=== PATIENT | male | born 1950 | race Caucasian/White ===

== ENCOUNTER 2020-07-07 17:45 | Emergency (ER) | payer MEDICARE, SELFPAY ==
--- NOTE | 2020-07-07 17:48 | ED.WOUNDLAC ---
HPI - Wound/Laceration General Chief Complaint: Wound/Laceration Stated Complaint: head laceration Time Seen by Provider: 07/07/20 17:48 Source: patient Mode of arrival: ambulatory Limitations: no limitations History of Present Illness HPI narrative: Patient is a 69-year-old male who presents with a laceration to left eyebrow. Patient was chasing grandson on tricycle when he tripped and fell hitting head on concrete. He denies LOC, denies neck pain, denies headache. Denies use of blood thinners. Patient has approximately 2.5 cm laceration above left eyebrow. Abrasion to chin and left knee. Denies pain at knee. Bleeding controlled at this time. Related Data Home Medications Medication Instructions Recorded Confirmed melatonin 10 mg capsule 10 mg PO DAILY cap 03/25/19 04/30/20 vilazodone 20 mg tablet 20 mg PO DAILY 03/25/19 04/30/20 Allergies Allergy/AdvReac Type Severity Reaction Status Date / Time No Known Allergies Allergy Verified 04/30/20 15:35 Review of Systems Review of Systems: Narrative: CONSTITUTIONAL: Denies fever, chills, or sweats. EYES: Denies visual changes, redness, or discharge. ENT: Denies rhinorrhea, congestion, sore throat, or otalgia. CARDIOVASCULAR: Denies chest pain, palpitations, or edema. RESPIRATORY: Denies cough or dyspnea. GASTROINTESTINAL: Denies abdominal pain, nausea, vomiting, or diarrhea. GENITOURINARY: Denies dysuria or hematuria. SKIN: Laceration left eyebrow, abrasion to chin and left knee MUSCULOSKELETAL: Denies back pain, joint pain, or myalgia. NEUROLOGIC: Denies headache, numbness, dizziness, or weakness. PSYCHIATRIC: Denies anxiety or depression. [facility] Past Medical History Medical History Basal cell carcinoma (BCC) of dorsum of nose Erectile dysfunction Low back pain Obesity (BMI 30.0-34.9) Onychomycosis Surgical History Surgical History History of colonoscopy (~01/20/11) normal, repeat 10 years History of colonoscopy (~03/22/12) internal hemorrhoids Family History Family History Mother Cerebrovascular accident Father , age 90 Cerebrovascular accident Skin cancer Heart disease Congestive heart failure Social History Social History Smoking status: Never smoker Smoking end date: 04/24/83 Alcohol intake: current Comments At the time of signature, I have reviewed and agree with nursing past medical, surgical, social, and family history unless otherwise noted. Please see nursing chart for further information. There is no relevant family history pertinent to the presenting complaint. Exam Narrative: Exam Narrative: GENERAL: Well-appearing, well-nourished, and in no acute distress. HEAD: Normocephalic, atraumatic. EYES: EOMI. No redness or drainage. Conjunctiva are normal. ENT: Mucous membranes pink and moist. NECK: AROM. Supple. No lymphadenopathy or deformity. CHEST: No respiratory distress. HEART: Regular rate and rhythm. No murmur appreciated. Normal peripheral pulses. GI: Soft, nontender without rebound, or guarding. MUSCULOSKELETAL: No bony tenderness. EXTREMITIES: Normal range of motion. No edema or deformity. SKIN: Approximate 2.5 cm laceration above left eyebrow, linear, bleeding controlled, abrasion to chin and left knee NEURO: No focal deficits. Alert and oriented x3. Gait steady. PSYCH: Normal affect. No signs of depression or anxiety. Course Vital Signs Vital signs: Vital Signs Temperature 36.6 C 07/07/20 17:52 Pulse Rate 92 07/07/20 17:52 Respiratory Rate 20 07/07/20 17:52 Blood Pressure 139/81 07/07/20 17:52 Pulse Oximetry 98 07/07/20 17:52 Temperature 36.6 C 07/07/20 17:52 Pulse Rate 92 07/07/20 17:52 Respiratory Rate 20 07/07/20 17:52 Blood Pressure
[2020-07-07 17:52] VITALS: BP 139/81; PULSE 92; RESP 20; TEMP 36.6; O2SAT 98
== END 2020-07-07 18:37 | disposition short-term general hospital (02) ==
PROVIDERS: Emergency Provider Nurse Practitioner; PCP Family Medicine
DX: S01.112A Laceration without foreign body of left eyelid and periocular area, initial encounter (principal); W01.0XXA Fall on same level from slipping, tripping and stumbling without subsequent striking against object, initial encounter; Z85.828 Personal history of other malignant neoplasm of skin
CPT/HCPCS: 12011; 99212; G0463

== ENCOUNTER 2020-07-07 18:51 | Emergency (ER) | payer MEDICARE, SELFPAY ==
--- NOTE | ~2020-07-07 | CT_ITS ---
EXAMINATION: CT brain wo con DATE: 07/07/2020 19:52 INDICATION: Fall. Head trauma. TECHNIQUE: Computed tomography (CT) of the head was performed without intravenous contrast. The mA wa s adjusted according to patient size. Iterative reconstruction technique was employed. Exam dose: 68 1.00 mGy-cm total exam DLP. COMPARISON: 07/12/2017 CT brain FINDINGS: No intracranial mass lesion or hemorrhage or cerebrovascular accident is evident. There is no midline shift or mass effect effect. Bilateral carotid siphon internal carotid artery calcifications. Normal ventricular size. No subdural or epidural hematoma. No fracture or bone destruction of the cranial vault. Included paranasal sinuses and mastoid air cells are normally developed and aerated. No fracture or bone destruction of the cranial vault. IMPRESSION: No acute intracranial finding or skull fracture Reviewed, dictated and finalized at [facility]. Reviewed, dictated and finalized at [facility].
[2020-07-07 19:18] VITALS: BP 158/87; PULSE 92; RESP 18; TEMP 36.7; O2SAT 97
--- NOTE | 2020-07-07 20:41 | ED.HEATRA ---
HPI - Head Injury General Chief complaint: Head Injury Stated complaint: head trauma no loc Time Seen by Provider: 07/07/20 20:34 Source: patient Mode of arrival: ambulatory Limitations: no limitations History of Present Illness HPI Narrative: 69-year-old with no major medical problems here with complaints of laceration to his left eyebrow sustained few hours ago. Patient states that he was watching his grandson riding his bike, accidentally lost balance and fell forward. Denies any loss of consciousness. Denies any neck injuries. Patient states that he went to urgent care and was later referred here to the ER for CT scan. He denies any other injuries. Complaint: head injury Place: outdoors Loss of Consciousness: no Location of injury: frontal Severity: mild Other Injuries: none Related Data Home Medications Medication Instructions Recorded Confirmed melatonin 10 mg capsule 10 mg PO DAILY cap 03/25/19 04/30/20 vilazodone 20 mg tablet 20 mg PO DAILY 03/25/19 04/30/20 Allergies Allergy/AdvReac Type Severity Reaction Status Date / Time No Known Allergies Allergy Verified 04/30/20 15:35 Review of Systems Review of Systems: All systems reviewed & are unremarkable except as noted in HPI and below Constitutional: Constitutional: Reports no additional constitutional complaints Eyes: Eyes: Reports no additional eye complaints ENT: Reports system reviewed and no additional complaints, except as documented Cardiovascular: Cardiovascular: Reports no additional cardiovascular complaints Respiratory: Respiratory: Reports no additional respiratory complaints Gastrointestinal: Gastrointestinal: Reports no additional gastrointestinal complaints Musculoskeletal: Musculoskeletal: Reports no additional musculoskeletal complaints Neurologic: Reports system reviewed and no additional complaints, except as documented [facility] Past Medical History Medical History Basal cell carcinoma (BCC) of dorsum of nose Erectile dysfunction Low back pain Obesity (BMI 30.0-34.9) Onychomycosis Surgical History Surgical History History of colonoscopy (~01/20/11) normal, repeat 10 years History of colonoscopy (~03/22/12) internal hemorrhoids Family History Family History Mother Cerebrovascular accident Father , age 90 Cerebrovascular accident Skin cancer Heart disease Congestive heart failure Social History Social History Smoking status: Never smoker Smoking end date: 04/24/83 Alcohol intake: current Exam Narrative: Exam Narrative: GENERAL: Well-appearing, well-nourished, and in no acute distress. HEAD: Normocephalic, has minor superficial lac on the left eye brow EYES: PERRLA and EOMI. NECK: Supple. CHEST: Clear to auscultation. No respiratory distress. HEART: Regular rate and rhythm. No murmur heard. Normal peripheral pulses.. EXTREMITIES: Normal range of motion. No edema. SKIN: Warm, dry, no rash. NEURO: No focal deficits. Alert and oriented x3. PSYCH: Normal mood and affect. Course Course Emergency Course: Discussed CT findings with the patient. At this time he has no headache or visual problems. Advised him to keep the wound dry and clean. Apply Neosporin if needed advised him to Tylenol as needed for the pain and also follow-up with Dr. Guadarrama Vital Signs Vital signs: Vital Signs Temperature 36.7 C 07/07/20 19:18 Pulse Rate 92 07/07/20 19:18 Respiratory Rate 18 07/07/20 19:18 Blood Pressure 158/87 H 07/07/20 19:18 Pulse Oximetry 97 07/07/20 19:18 Temperature 36.7 C 07/07/20 19:18 Pulse Rate 92 07/07/20 19:18 Respiratory Rate 18 07/07/20 19:18 Blood Pressure 158/87 H 07/07/20 19:18 Pulse Oximetry 97 07/07/20 19:18 MDM - Head
[2020-07-07 20:50] VITALS: BP 140/79; PULSE 87; RESP 18; O2SAT 98
== END 2020-07-07 20:50 | disposition home or self-care (01) ==
PROVIDERS: Emergency Provider Family Medicine; PCP Family Medicine
DX: S09.90XA Unspecified injury of head, initial encounter (principal); S01.112A Laceration without foreign body of left eyelid and periocular area, initial encounter; Z85.828 Personal history of other malignant neoplasm of skin; E66.9 Obesity, unspecified; Z68.29 Body mass index [BMI] 29.0-29.9, adult; W18.39XA Other fall on same level, initial encounter
CPT/HCPCS: 70450; 99284

== ENCOUNTER 2021-05-30 09:05 | Emergency (ER) | payer MEDICARE, SELFPAY ==
--- NOTE | ~2021-05-30 | XR_ITS ---
EXAMINATION: XR chest 2V 05/30/2021 10:00 INDICATION: Chest pain and dizziness PROCEDURE: 2 views of the chest COMPARISON: 11/06/2015 FINDINGS: The lungs are clear. The cardiomediastinal silhouette is within normal limits. There are no pleural effusions. There is no pneumothorax suspected. IMPRESSION: 1: NO ACUTE CARDIOPULMONARY DISEASE. Reviewed, dictated and finalized at [facility]. MEDICAL TECHNOLOGIST
[2021-05-30 09:08] VITALS: BP 151/75; PULSE 79; RESP 22; TEMP 36.4; O2SAT 96
--- NOTE | 2021-05-30 09:21 | ECG_ITS ---
Measurements Intervals [place] Rate: 78 P: 27 AK: 179 QRS: -28 QRSD: 113 T: 38 QT: 393 QTc: 450 Interpretive Statements SINUS RHYTHM CONSIDER INFERIOR INFARCT, AGE INDETERMINATE BASELINE ARTIFACT- I, II, III, AVR, AVL, AVF, V1-V6 ABNORMAL ECG Electronically Signed On 05-30-2021 14:19:35 [employer] by Vasyl Alcaraz D.O.
[2021-05-30 09:30] LABS: Basophils Percent Auto 0.4 % (0.2-1.2); Eosinophils Absolute Auto 0.2 K/mm3 (0-0.3); Eosinophils Percent Auto 3.9 % (0-4.4); Hematocrit 42.5 % (42.0-52.0); Hemoglobin 15.3 g/dL (14.0-18.0); Immature Granulocyte Absolute 0.01 K/mm3 (0.00-0.031); Immature Granulocyte Percent A 0.2 % (0-0.5); Immature Platelet Fraction Pct 3.7 % (0.9-11.2); Lymphocytes Absolute Auto 1.58 K/mm3 (0.9-3.2); Lymphocytes Percent Auto 30.6 % (18.3-44.2); Mean Corpuscular Hemoglobin 32.6 pg (26-34); Mean Corpuscular Volume 90.6 fl (80-100); Mean Platelet Volume 9.9 fl (7.4-10.4); Monocytes Absolute Auto 0.4 K/mm3 (0.1-0.6); Monocytes Percent Auto 8.1 % (2.6-8.5); Neutrophils Absolute Auto 2.9 K/mm3 (1.3-6.7); Neutrophils Percent Auto 56.8 % (45.5-73.1); Platelet Count Result 156 k/mm3 (150-375); Red Blood Count 4.69 M/mm3 (4.6-6.20); White Blood Count 5.2 K/mm3 (4.5-10.0)
[2021-05-30 09:38] LABS: Alanine Aminotransferase 36 U/L (4-50); Albumin Level 4.4 g/dL (3.5-5.1); Alkaline Phosphatase 65 U/L (38-126); Anion Gap 11 mmol/L (8-16); Aspartate Amino Transferase 33 U/L (17-59); Blood Urea Nitrogen 15 mg/dL (9-20); Calcium 9.2 mg/dL (8.4-10.2); Carbon Dioxide 23 mmol/L (22-30); Chloride 103 mmol/L (98-107); Estimated CRCL calculation 65 ml/min; Estimated Glomerular Filt Rate > 60; Glucose 209 mg/dL (65-110); Potassium 3.3 mmol/L (3.4-5.0); Sodium 137 mmol/L (137-145)
--- NOTE | 2021-05-30 10:09 | ED.GENADULT ---
HPI - General Adult General Chief complaint: Dizziness Stated complaint: syncopal Time Seen by Provider: 05/30/21 09:32 Source: patient and RN notes reviewed History of Present Illness HPI narrative: Patient is a 70 y/o male complaining lightheadedness and almost passing earlier today while he was at [employer]. He had to lay down at a bench. He did not actually pass out. There is no known alleviating or exacerbating factor. He also had some slight chest pain. However his symptoms have resolved. EMS reports that his was hypotensive and bradycardic initially. 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 He is unable to provide more specific description of what exactly happened yesterday. Related Data Allergies Allergy/AdvReac Type Severity Reaction Status Date / Time No Known Allergies Allergy Verified 05/30/21 09:20 Review of Systems Constitutional: Constitutional: Denies chills, Denies fever(s), Denies headache(s) and Reports weakness Eyes: Eyes: Denies blurry vision ENT: Denies headache(s) and Denies neck pain Cardiovascular: Cardiovascular: Reports chest pain and Denies dyspnea Respiratory: Respiratory: Denies cough and Denies dyspnea Gastrointestinal: Gastrointestinal: Denies abdominal pain, Denies diarrhea, Denies nausea and Denies vomiting Genitourinary: Genitourinary: Denies hematuria and Denies dysuria Musculoskeletal: Musculoskeletal: Denies back pain and Denies neck pain Neurologic: Reports dizziness, Denies headache(s) and Reports weakness PMFSH Past Medical History Medical History Basal cell carcinoma (BCC) of dorsum of nose Erectile dysfunction Low back pain Obesity (BMI 30.0-34.9) Onychomycosis Surgical History Surgical History History of colonoscopy (~01/20/11) normal, repeat 10 years History of colonoscopy (~03/22/12) internal hemorrhoids Family History Family History Mother Cerebrovascular accident Father , age 90 Cerebrovascular accident Skin cancer Heart disease Congestive heart failure Social History Social History Smoking end date: 04/24/83 Alcohol intake: current Exam Const: General: no acute distress and well developed Orientation/consciousness: oriented to person, oriented to place, oriented to time and patient oriented x3 HENMT: Head: normocephalic Ears: external ears normal General nose exam: Normal external nose present Eyes: General: appearance normal, both eyes and all related structures Conjunctivae: conjunctivae normal Neck: Neck: normal visual inspection and full ROM Chest: Chest palpation & inspection: normal inspection of the chest and no tenderness Resp: Effort & Inspection: normal respiratory effort Auscultation: clear to auscultation bilaterally Cardio: Rate: regular rate Rhythm: regular rhythm GI: GI Palp: No abdominal tenderness and Yes Soft to palpation Skin: General skin exam: normal color and turgor normal Neuro: General: oriented to person, oriented to place, oriented to time and patient oriented x3 Cranial nerves: Yes CN's II-XII intact bilaterally Cognition (Neuro): normal cognition Speech: normal speech Motor exam (neuro): 5/5 motor strength present throughout Sensory Exam: normal sensation Coordination: [id number] test normal and [id number] test normal Extrem: General: normal to inspection, full ROM and no pedal edema Psych: Appearance: grossly normal Mental Status: mental status grossly normal Affect: normal affect Course Reevaluation(s) Reevaluation #1: Rechecked. Patient states that he feels well. He has no chest pain or lightheadedness. Date: 05/30/21 Time: 14:40 Vital Signs
[2021-05-30 10:23] VITALS: BP 125/79; PULSE 74; RESP 18; O2SAT 95
[2021-05-30 10:24] LABS: D Dimer 0.27 ug/mL (<0.48); Troponin I < 0.012 ng/mL (0.000-0.034)
[2021-05-30 11:25] VITALS: BP 140/82; PULSE 72; RESP 17; O2SAT 97
[2021-05-30] MEDS: POTASSIUM CHLORIDE 20 MEQ TABLET PO (11:58)
[2021-05-30 13:20] LABS: Troponin I < 0.012 ng/mL (0.000-0.034)
[2021-05-30 13:33] VITALS: BP 119/85; PULSE 72; RESP 19; O2SAT 98
[2021-05-30 14:53] VITALS: BP 126/85; PULSE 77; RESP 15; O2SAT 97
== END 2021-05-30 14:56 | disposition home or self-care (01) ==
PROVIDERS: Emergency Provider Emergency Medicine; PCP Family Medicine
DX: R42 Dizziness and giddiness (principal); R07.9 Chest pain, unspecified; E66.9 Obesity, unspecified; Z68.28 Body mass index [BMI] 28.0-28.9, adult; Z87.891 Personal history of nicotine dependence; R94.31 Abnormal electrocardiogram [ECG] [EKG]; Z85.828 Personal history of other malignant neoplasm of skin
CPT/HCPCS: 36415; 71046; 80053; 84484; 85025; 85055; 85380; 93005; 99284; A9270

== ENCOUNTER 2021-08-12 00:32 | Day surgery (SDC) | payer MEDICARE, SELFPAY ==
[2021-07-28 13:41] VITALS: BMI 27.6
--- NOTE | 2021-08-11 12:19 | WPDANESEPPF ---
Anes - Initial Pre Proc Eval Procedure: Operation Date: 08/12/21 07:30 Proposed Procedures p Screening Colonoscopy - Boby Serrano MD Date/Time: 08/11/21 12:19 Surgeon: Boby Serrano MD Pre Op Diagnosis: neoplasm screening Patient Data Age: 70 Gender: M Height: 1.88 m Weight: 97.7 kg Allergies Allergy/AdvReac Type Severity Reaction Status Date / Time No Known Allergies Allergy Verified 08/12/21 06:20 Home Medications Medication Instructions Recorded Confirmed Type blood-glucose meter,continuous #1 each 09/24/19 08/12/21 Rx blood-glucose sensor #3 each 09/24/19 08/12/21 Rx blood-glucose transmitter #1 each 09/24/19 08/12/21 Rx pantoprazole 20 mg tablet,delayed See Rx Instructions .ROUTE 09/07/20 08/12/21 Rx release .COMPLEX #90 tablet fluticasone propionate 50 See Rx Instructions .ROUTE 01/12/21 08/12/21 Rx mcg/actuation nasal .COMPLEX #48 milliliter spray,suspension metformin 500 mg tablet,extended See Rx Instructions .ROUTE 03/08/21 08/12/21 Rx release 24 hr .COMPLEX #180 tablet sertraline 100 mg tablet See Rx Instructions .ROUTE 04/22/21 08/12/21 Rx .COMPLEX #90 tablet rosuvastatin 5 mg tablet 5 mg PO DAILY #90 tablet 07/14/21 08/12/21 Rx tadalafil 20 mg tablet 20 mg PO DAILY PRN #10 tablet 07/16/21 08/12/21 Rx clonazepam 0.5 mg tablet 0.5 mg PO TID 30 Days #90 tablet 07/27/21 08/12/21 Rx Patient hx anesthesia problems: none Family hx anesthesia problems: none Results Review: All pre-operative results and documents have been reviewed as part of the pre-operative evaluation. [facility] Past Medical History Medical History (Updated 08/12/21 @ 06:44 by Simón Moise DO) Anxiety Basal cell carcinoma (BCC) of dorsum of nose Diabetes type 2, controlled Erectile dysfunction Essential (primary) hypertension GERD (gastroesophageal reflux disease) Low back pain Mixed hyperlipidemia Onychomycosis Surgical History Surgical History History of colonoscopy (~01/20/11) normal, repeat 10 years History of colonoscopy (~03/22/12) internal hemorrhoids Family History Family History Mother Cerebrovascular accident Father , age 90 Cerebrovascular accident Skin cancer Heart disease Congestive heart failure Social History Social History (Updated 07/14/21 @ 10:27 by IAN Emanuel) Years smoked: 15 Smoking status: Former smoker Tobacco type: cigarettes Smoking end date: 04/24/83 Alcohol intake: never Substance use: never Substance use type: does not use Living arrangements: with family Spiritual care concerns: No Anes - Eval Final PreProcedure Day of Procedure 08/11/21 12:19 Patient weight: overweight Heart: regular rate and rhythm Lungs: clear to auscultation and normal air movement Airway: Mallampati scale class II Neurological: alert and oriented Last oral intake: >/= 8 hours ASA classification: III Emergent: no Anesthetic plan: proceed Anesthesia type and monitoring: general GIVS and standard monitoring Results Review: All pre-operative results and documents have been reviewed as part of the pre-operative evaluation. Informed Consent: The patient's anesthetic plan and its attendant risks and benefits were discussed with the patient/family/POA. Questions were solicited and answers provided to the satisfaction of the patient/family/POA.
[2021-08-12 06:21] VITALS: BP 143/94; PULSE 71; RESP 18; TEMP 36.4; O2SAT 98
[2021-08-12] MEDS: LACTATED RINGERS 1,000 ML 150 ML IV CONT (06:36)
[2021-08-12 06:41] LABS: Glucose Point of Care 145 mg/dl (65-105)
--- NOTE | 2021-08-12 07:46 | WPDGICN ---
Assessment and Plan Assessment and plan (1) Encounter for screening colonoscopy: Code(s): Z12.11 - Encounter for screening for malignant neoplasm of colon Status: Acute Assessment and Plan: Patient presents for screening colonoscopy. Appears to be at average risk for colon polyps. GI Consult Note Consult date/time: 08/12/21 07:46 HPI: Con Bright is a 70 year old male Presents for screening colonoscopy. Patient reports that his current weight appetite and bowel movements are normal. He denies abdominal pain. He has had no bleeding. Family history is noncontributory. Patient's last colonoscopy 10 years ago was unremarkable. He presents today for neoplasia screening colonoscopy. Review of Systems Review of Systems: All systems reviewed & are unremarkable except as noted in HPI and below PMFSH Past Medical History Medical History (Updated 08/12/21 @ 07:47 by Boby Serrano MD) Anxiety Basal cell carcinoma (BCC) of dorsum of nose Diabetes type 2, controlled Erectile dysfunction Essential (primary) hypertension GERD (gastroesophageal reflux disease) Low back pain Mixed hyperlipidemia Onychomycosis Surgical History Surgical History History of colonoscopy (~01/20/11) normal, repeat 10 years History of colonoscopy (~03/22/12) internal hemorrhoids Family History Family History Mother Cerebrovascular accident Father , age 90 Cerebrovascular accident Skin cancer Heart disease Congestive heart failure Social History Social History (Updated 07/14/21 @ 10:27 by aDysi Rangel Ulices) Years smoked: 15 Smoking status: Former smoker Tobacco type: cigarettes Smoking end date: 04/24/83 Alcohol intake: never Substance use: never Substance use type: does not use Living arrangements: with family Spiritual care concerns: No Meds Home Medications and Allergies Home Medications Medication Instructions Recorded Confirmed Type blood-glucose meter,continuous #1 each 09/24/19 08/12/21 Rx blood-glucose sensor #3 each 09/24/19 08/12/21 Rx blood-glucose transmitter #1 each 09/24/19 08/12/21 Rx pantoprazole 20 mg tablet,delayed See Rx Instructions .ROUTE 09/07/20 08/12/21 Rx release .COMPLEX #90 tablet fluticasone propionate 50 See Rx Instructions .ROUTE 01/12/21 08/12/21 Rx mcg/actuation nasal .COMPLEX #48 milliliter spray,suspension metformin 500 mg tablet,extended See Rx Instructions .ROUTE 03/08/21 08/12/21 Rx release 24 hr .COMPLEX #180 tablet sertraline 100 mg tablet See Rx Instructions .ROUTE 04/22/21 08/12/21 Rx .COMPLEX #90 tablet rosuvastatin 5 mg tablet 5 mg PO DAILY #90 tablet 07/14/21 08/12/21 Rx tadalafil 20 mg tablet 20 mg PO DAILY PRN #10 tablet 07/16/21 08/12/21 Rx clonazepam 0.5 mg tablet 0.5 mg PO TID 30 Days #90 tablet 07/27/21 08/12/21 Rx Allergies Allergy/AdvReac Type Severity Reaction Status Date / Time No Known Allergies Allergy Verified 08/12/21 06:20 Vital Signs Vital Signs - 24 hr 08/12/21 06:21 Temperature 97.5 F L Pulse Rate 71 Respiratory Rate 18 Blood Pressure 143/94 H Pulse Oximetry 98 Exam Narrative: Physical exam reveals patient to be alert. Vital signs stable. HEENT exam is unremarkable. Patient is anicteric. Lungs are clear to auscultation and percussion. Heart is without murmur or extra sounds. Abdominal exam bowel sounds are present soft nontender with no organomegaly. Digital external rectal exam is normal.
[2021-08-12 07:50] VITALS: BP 106/66; PULSE 66; RESP 17; O2SAT 96
[2021-08-12 08:00] VITALS: BP 129/89; PULSE 68; RESP 23; O2SAT 98
[2021-08-12 08:10] VITALS: BP 138/95; PULSE 65; RESP 20; O2SAT 97
== END 2021-08-12 08:21 | disposition home or self-care (01) ==
PROVIDERS: PCP Family Medicine; Visit Provider Internal Medicine Gastroenterology
PROC: 0DJD8ZZ Inspection of Lower Intestinal Tract, Via Natural or Artificial Opening Endoscopic (ICD-10-PCS; CPT 45378; principal; 2021-08-12 07:30)
DX: Z12.11 Encounter for screening for malignant neoplasm of colon (principal); I10 Essential (primary) hypertension; E11.9 Type 2 diabetes mellitus without complications; E78.2 Mixed hyperlipidemia; K21.9 Gastro-esophageal reflux disease without esophagitis; F41.9 Anxiety disorder, unspecified; Z87.891 Personal history of nicotine dependence; Z79.84 Long term (current) use of oral hypoglycemic drugs
CPT/HCPCS: G0121; 82948; J2704; J7120

== ENCOUNTER 2022-07-23 08:25 | Emergency (ER) | payer MEDICARE, SELFPAY ==
--- NOTE | ~2022-07-23 | XR_ITS ---
EXAMINATION: XR finger 3rd LT min 2V DATE: 07/23/2022 08:56 INDICATION: Left hand third digit injury and pain. TECHNIQUE: 4 views of left hand third digit were obtained. COMPARISON: None. FINDINGS: Bone alignment is normal. No fracture. 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 IMPRESSION: 1. No fracture. Reviewed, dictated and finalized at location [facility]. IMPRESSION: 1. No fracture.
--- NOTE | ~2022-07-23 | XR_ITS ---
EXAMINATION: XR finger 3rd RT min 2V DATE: 07/23/2022 08:55 INDICATION: Right hand third digit injury and pain. TECHNIQUE: 4 views of right hand third digit were obtained. COMPARISON: None. FINDINGS: There is an oblique fracture of tuft of third distal phalanx. The distal fracture fragment demonstrates 2 mm palmar displacement and 20 degrees palmar angulation. There is mild osteoarthritis of proximal and distal interphalangeal joints. IMPRESSION: 1. Oblique fracture of tuft of third distal phalanx. Reviewed, dictated and finalized at location A.
[2022-07-23 08:37] VITALS: BP 134/82; PULSE 81; RESP 16; TEMP 36.8; O2SAT 99
--- NOTE | 2022-07-23 08:45 | ED.UPPEXIN ---
HPI - Extremity Injury (Upper) General Chief Complaint: Extremity Injury, Upper Stated Complaint: rt/lt middle finger injury Time Seen by Provider: 07/23/22 08:40 Source: patient Mode of arrival: ambulatory Limitations: no limitations History of Present Illness HPI narrative: Con is a 71-year-old male patient presenting to the clinic today with complaints of right and left 3rd finger injuries. He reports he was trying to close the garage door while the carrizales out last night and got his fingers caught in between the panels. States that he was unable to get his fingers out and felt as though he may have passed out due to the pain and then fell down and this ripped his fingers out of the door panel. Tetanus is up-to-date Related Data Allergies Allergy/AdvReac Type Severity Reaction Status Date / Time No Known Allergies Allergy Verified 07/23/22 08:48 Review of Systems Review of Systems: Pertinent positives per HPI. Patient denies any fever, chills, rash, headache, visual changes, dizziness, cough, runny nose, sore throat, shortness of breath, chest pain, palpitations, nausea, vomiting, diarrhea, constipation, abdominal pain, or any urinary issues. [facility] Past Medical History Medical History Anxiety Basal cell carcinoma (BCC) of dorsum of nose Diabetes type 2, controlled Erectile dysfunction Essential (primary) hypertension GERD (gastroesophageal reflux disease) Low back pain Mixed hyperlipidemia Onychomycosis Surgical History Surgical History History of colonoscopy (~01/20/11) normal, repeat 10 years History of colonoscopy (~03/22/12) internal hemorrhoids Family History Family History Mother Cerebrovascular accident Father , age 90 Cerebrovascular accident Skin cancer Heart disease Congestive heart failure Social History Social History Years smoked: 15 Smoking status: Former smoker Tobacco type: cigarettes Smoking end date: 04/24/83 Alcohol intake: never Substance use: never Substance use type: does not use Living arrangements: with family Spiritual care concerns: No Comments At the time of my signature, I reviewed and agree with the nursing past medical, surgical, social, and family history. There is no relevant family history pertinent to the patient complaint. Exam Narrative: General: Well-developed, well nourished, in no apparent distress Head: Normocephalic, atraumatic. Cardio: Regular rate and rhythm, s1 and s2 normal, no murmur appreciated. Resp: Clear to auscultation bilaterally, no rhonchi, rales, wheezing or rubs. Musculoskeletal: No deformity, bruising and swelling noted to the distal tips of the right and left 3rd fingers, tender to palpation over the distal tips of the bilateral 3rd finger, partial nail avulsion from the cuticle to the right 3rd finger, grossly normal range of motion, muscle strength strong and equal, peripheral pulse strong, no cyanosis, normal gait and station Course Course Emergency Course: Portions of this record may have been created with voice recognition software. Level of Care: Express Care Visit Vital Signs Vital signs: Vital Signs Temperature 36.8 C 07/23/22 08:37 Pulse Rate 81 07/23/22 08:37 Respiratory Rate 16 07/23/22 08:37 Blood Pressure 134/82 07/23/22 08:37 Pulse Oximetry 99 07/23/22 08:37 Temperature 36.8 C 07/23/22 08:37 Pulse Rate 81 07/23/22 08:37 Respiratory Rate 16 07/23/22 08:37 Blood Pressure 134/82 07/23/22 08:37 Pulse Oximetry 99 07/23/22 08:37 Vital signs reviewed MDM - Extremity Injury (Upper) MDM Narrative Medical decision making narrative: At the time of visit patient is resting comfortably on exam table. X-
== END 2022-07-23 09:36 | disposition home or self-care (01) ==
PROVIDERS: Emergency Provider Nurse Practitioner Family; PCP Family Medicine
DX: S62.632B Displaced fracture of distal phalanx of right middle finger, initial encounter for open fracture (principal); S60.032A Contusion of left middle finger without damage to nail, initial encounter; E78.2 Mixed hyperlipidemia; I10 Essential (primary) hypertension; E11.9 Type 2 diabetes mellitus without complications; Z87.891 Personal history of nicotine dependence; Z85.828 Personal history of other malignant neoplasm of skin; W23.0XXA Caught, crushed, jammed, or pinched between moving objects, initial encounter
CPT/HCPCS: 29130; 73140; 99214; G0463

== ENCOUNTER 2022-10-07 08:43 | Outpatient (CLI) | payer MEDICARE, SELFPAY ==
[2022-10-07 16:48] LABS: Alanine Aminotransferase 39 U/L (6-50); Albumin Level 4.3 g/dL (3.5-5.1); Alkaline Phosphatase 57 U/L (38-126); Anion Gap 8 mmol/L (8-16); Aspartate Amino Transferase 40 U/L (17-59); Bilirubin,Total 0.8 mg/dL (0.2-1.3); Blood Urea Nitrogen 15 mg/dL (9-20); Calcium 8.7 mg/dL (8.4-10.2); Carbon Dioxide 30 mmol/L (22-30); Chloride 101 mmol/L (98-107); Cholesterol 140 mg/dL (0-200); Estimated Glomerular Filt Rate > 60; Glucose 166 mg/dL (65-110); HDL Direct 34 mg/dL; Potassium 4.2 mmol/L (3.4-5.0); Sodium 139 mmol/L (137-145); Triglycerides 242 mg/dL (<150)
[2022-10-07 17:00] LABS: LDL Cholesterol Direct 69 mg/dL
== END 2022-10-07 08:44 | disposition home or self-care (01) ==
LOC: ANHGOSHLAB 08:44
PROVIDERS: PCP Family Medicine; Visit Provider Family Medicine
DX: E11.9 Type 2 diabetes mellitus without complications (principal)
CPT/HCPCS: 36415; 80053; 80061; 83036

== ENCOUNTER → 2023-03-15 12:57 | Outpatient (CLI) | payer MEDICARE, SELFPAY ==
--- NOTE | ~2023-03-15 | XR_ITS ---
EXAMINATION: XR chest 2V DATE: 03/15/2023 13:21 INDICATION: Cough and shortness of breath TECHNIQUE: PA and lateral views of the chest are obtained. COMPARISON: 05/30/2021 FINDINGS: There are minimal airspace opacities of the lung bases. No pleural effusion or pneumothorax . The cardiomediastinal silhouette is normal. The visualized bones and soft tissues are unremarkable. IMPRESSION: 1. Minimal airspace opacities of the lung bases, consistent with atelectasis versus pneumonia. Reviewed, dictated and finalized at location F. [employer] IMPRESSION: 1. Minimal airspace opacities of the lung bases, consistent with atelectasis ve rsus pneumonia.
== END ==
PROVIDERS: PCP Emergency Medicine; Visit Provider Emergency Medicine
DX: R05.9 Cough, unspecified (principal); R06.02 Shortness of breath
CPT/HCPCS: 71046

== ENCOUNTER 2024-01-29 14:56 | Outpatient (CLI) | payer MEDICARE, SELFPAY ==
--- NOTE | ~2024-01-29 | XR_ITS ---
XR hip RT 2V w AP pelvis Ordering provider: KIRTI Cui History: . no known injury lbp with right hip pain . Comparison: None. FINDINGS: BONES: No acute fracture or dislocation. HIP JOINT SPACES: Normal. SACROILIAC JOINT SPACES/LUMBAR SPINE: The sacroiliac joint spaces are normal. Mild degenerative sargent es of the visualized lower lumbar spine. PUBIC SYMPHYSIS: Normal. SOFT TISSUES: Normal. IMPRESSION: No acute osseous abnormality pelvis and right hip. If patient continues to have symptoms a repeat exam is advised. Reviewed, dictated and finalized at location A.
--- NOTE | ~2024-01-29 | XR_ITS ---
3 VIEWS LUMBAR SPINE Ordering provider: BALDEMAR Cui-C History: . no known injury lbp with right hip pain . Comparison: None. FINDINGS: VERTEBRAL BODIES: No visible fracture or subluxation. Mild dextroscoliosis may be positional. DISK SPACES: Narrowing of the disc spaces L2-L3, L3-L4, L4-L5 and L5-S1. SOFT TISSUES: Aortic atherosclerotic changes. IMPRESSION: No acute osseous abnormality lumbar spine. Multilevel degenerative disc disease. Reviewed, dictated and finalized at location A.
== END 2024-01-29 14:57 | disposition home or self-care (01) ==
LOC: GOSHIMG 14:57
PROVIDERS: PCP Family Medicine; Visit Provider Nurse Practitioner Family
DX: M25.551 Pain in right hip (principal); M79.604 Pain in right leg; M51.369 Other intervertebral disc degeneration, lumbar region without mention of lumbar back pain or lower extremity pain
CPT/HCPCS: 72100; 73502